=== PATIENT | male | born 1985 | race Caucasian/White ===

== ENCOUNTER 2018-03-23 19:18 | Emergency (ER) | payer OTHER ==
[~2018-03-23] VITALS: Ht 175.2 cm; Wt 83.9 kg
[2018-03-23] MEDS ORDERED: AMOXICILLIN500 M2 PO (19:37)
[2018-03-23] MEDS ORDERED: NAPROSYN500 MG PO (19:37)
== END 2018-03-23 19:48 | disposition home or self-care (01) ==
LOC: ED 19:18
DX: K08.89 Other specified disorders of teeth and supporting structures (principal)

== ENCOUNTER 2020-08-21 17:00 | Emergency (ER) | payer OTHER ==
[~2020-08-21] VITALS: Ht 175.2 cm; Wt 79.4 kg
[~2020-08-21 17:00] MED LIST: AMOXICILLIN500 M2 PO; NAPROSYN500 MG PO
[2020-08-21] MEDS ORDERED: NORCO 5-325 TA1 EACH PO (19:57)
[2020-08-21] MEDS ORDERED: AUGMENTIN 875-875 MG PO (19:57)
== END 2020-08-21 20:11 | disposition left against medical advice (07) ==
LOC: ED 17:00
DX: S02.2XXA Fracture of nasal bones, initial encounter for closed fracture (principal); S02.31XA Fracture of orbital floor, right side, initial encounter for closed fracture; F17.200 Nicotine dependence, unspecified, uncomplicated; Y08.89XA Assault by other specified means, initial encounter; Y93.89 Activity, other specified; Y92.89 Other specified places as the place of occurrence of the external cause; Y99.8 Other external cause status